=== PATIENT | female | born 1980 | race African-American/Black ===

== ENCOUNTER 2023-12-23 09:48 | Emergency (ER) | payer MEDICAID, OTHER ==
[~2023-12-23] VITALS: Ht 165.1 cm; Wt 73.0 kg
[2023-12-23 09:57] VITALS: O2SAT 98
[2023-12-23 10:35] LABS: BASOPHILS % 0.7 % (0.0-2.0); EOSINOPHILS % 9.9 % (0.0-5.0); HEMATOCRIT. 39.3 % (36.0-48.0); HEMOGLOBIN. 12.9 g/dL (12.0-16.0); LYMPHOCYTES % 28.6 % (20.0-50.0); MEAN CORPUSCULAR HEMOGLOBIN 28.9 pg (28.0-32.0); MEAN CORPUSCULAR HGB CONC 32.7 g/dL (31.0-37.0); MEAN CORPUSCULAR VOLUME 88.5 fL (81.0-99.0); MEAN PLATELET VOLUME 9.2 fl (7.4-10.4); MONOCYTES % 9.8 % (2.0-8.0); PLATELET 193 x1000/uL (130-400); RED BLOOD CELL COUNT 4.44 mill/uL (4.2-5.4); RED CELL DISTRIBUTION WIDTH 14.8 % (11.6-14.6); WHITE BLOOD COUNT 4.7 x1000/uL (4.5-11.0)
[2023-12-23 10:59] LABS: CHLORIDE 104 mEq/L (98-107); SODIUM 138 mEq/L (136-145)
[2023-12-23 11:00] LABS: CALCIUM 9.5 mg/dL (8.7-10.4); CARBON DIOXIDE 27 mEq/L (21-32)
[2023-12-23 11:01] LABS: HCG SCREEN NEGATIVE
[2023-12-23 11:05] LABS: CREATININE 0.9 mg/dL (0.6-1.0); GLUCOSE 112 mg/dL (70-105); UREA NITROGEN BLOOD 11 mg/dL (9-23)
[2023-12-23 11:07] LABS: ALANINE AMINOTRANSFERASE 8 IU/L (10-49); ALBUMIN 4.2 g/dL (3.2-4.8); ASPARTATE AMINOTRANSFERASE 19 IU/L (<34); BILIRUBIN TOTAL 0.4 mg/dL (0.1-1.0)
[2023-12-23 11:08] LABS: PROTEIN TOTAL 6.9 g/dL (6.0-8.3)
[2023-12-23 11:21] LABS: BILIRUBIN DIRECT < 0.1 mg/dL (<=3.0)
[2023-12-23 12:27] LABS: ETHANOL BLOOD < 10 mg/dL (<10); TROPONIN I HIGH SENSITIVITY < 4 ng/L (3.0-34)
[2023-12-23 14:24] VITALS: BP 137/71; PULSE 64; RESP 16; TEMP 97.1
== END 2023-12-23 14:30 | disposition short-term general hospital (02) ==
LOC: ER 10:10
DX: R42 Dizziness and giddiness (principal); H53.8 Other visual disturbances; Z98.890 Other specified postprocedural states; Z91.048 Other nonmedicinal substance allergy status
CPT/HCPCS: 80076; 80048; 80320; 84703; 83690; 85025; 84484; 36415; 71045; 70450; 99285; Z7610 ×2; G0480

== ENCOUNTER 2024-01-03 17:20 | Emergency (ER) | payer OTHER ==
[~2024-01-03] VITALS: Ht 160 cm; Wt 82.0 kg
[2024-01-03 17:21] VITALS: BP 136/87; PULSE 73; RESP 18; TEMP 98.3; O2SAT 100
[2024-01-04] MEDS ORDERED: LORAZEPAM 1MG TABLET PO ONE (00:15)
[2024-01-04 00:44] LABS: BASOPHILS % 0.8 % (0.0-2.0); EOSINOPHILS % 10.9 % (0.0-5.0); LYMPHOCYTES % 25.7 % (20.0-50.0); MEAN CORPUSCULAR HEMOGLOBIN 28.8 pg (28.0-32.0); MEAN CORPUSCULAR HGB CONC 32.6 g/dL (31.0-37.0); MEAN CORPUSCULAR VOLUME 88.3 fL (81.0-99.0); MEAN PLATELET VOLUME 9.4 fl (7.4-10.4); NEUTROPHILS % 49.6 % (40.0-76.0); PLATELET 168 x1000/uL (130-400); RED BLOOD CELL COUNT 4.52 mill/uL (4.2-5.4); RED CELL DISTRIBUTION WIDTH 14.7 % (11.6-14.6); WHITE BLOOD COUNT 4.8 x1000/uL (4.5-11.0)
[2024-01-04 00:50] LABS: CARBON DIOXIDE 25 mEq/L (21-32); CHLORIDE 106 mEq/L (98-107); SODIUM 139 mEq/L (136-145)
[2024-01-04 00:51] LABS: CALCIUM 9.6 mg/dL (8.7-10.4)
[2024-01-04 00:55] LABS: CREATININE 0.8 mg/dL (0.6-1.0)
[2024-01-04 00:56] LABS: GLUCOSE 103 mg/dL (70-105); UREA NITROGEN BLOOD 16 mg/dL (9-23)
[2024-01-04 00:58] LABS: ALANINE AMINOTRANSFERASE 7 IU/L (10-49); ALBUMIN 4.7 g/dL (3.2-4.8); ASPARTATE AMINOTRANSFERASE 14 IU/L (<34); BILIRUBIN TOTAL 0.4 mg/dL (0.1-1.0); PROTEIN TOTAL 7.2 g/dL (6.0-8.3)
[2024-01-04 01:02] LABS: HCG SCREEN NEGATIVE
[2024-01-04] MEDS ORDERED: LORAZEPAM 1MG TABLET PO NR (02:45)
== END 2024-01-04 03:07 | disposition home or self-care (01) ==
LOC: ER 17:20
DX: F41.9 Anxiety disorder, unspecified (principal)
CPT/HCPCS: 36415; 80053; 84703; 85025; 99283

== ENCOUNTER 2024-01-11 08:58 | Emergency (ER) | payer OTHER ==
[~2024-01-11] VITALS: Ht 165.1 cm; Wt 82.0 kg
[2024-01-11 09:00] VITALS: TEMP 97.7; O2SAT 97
[2024-01-11 10:32] LABS: BASOPHILS % 1.6 % (0.0-2.0); EOSINOPHILS % 4.1 % (0.0-5.0); HEMOGLOBIN. 13.4 g/dL (12.0-16.0); LYMPHOCYTES % 27.2 % (20.0-50.0); MEAN CORPUSCULAR HEMOGLOBIN 28.7 pg (28.0-32.0); MEAN CORPUSCULAR HGB CONC 32.5 g/dL (31.0-37.0); MEAN CORPUSCULAR VOLUME 88.1 fL (81.0-99.0); MEAN PLATELET VOLUME 9.2 fl (7.4-10.4); MONOCYTES % 12.6 % (2.0-8.0); NEUTROPHILS % 54.5 % (40.0-76.0); PLATELET 190 x1000/uL (130-400); RED BLOOD CELL COUNT 4.66 mill/uL (4.2-5.4); RED CELL DISTRIBUTION WIDTH 14.6 % (11.6-14.6); WHITE BLOOD COUNT 3.9 x1000/uL (4.5-11.0)
[2024-01-11 10:45] LABS: CHLORIDE 105 mEq/L (98-107); POTASSIUM 3.9 mEq/L (3.5-5.1); SODIUM 139 mEq/L (136-145)
[2024-01-11 10:46] LABS: CARBON DIOXIDE 27 mEq/L (21-32)
[2024-01-11 10:47] LABS: CALCIUM 9.8 mg/dL (8.7-10.4)
[2024-01-11 10:51] LABS: CREATININE 0.7 mg/dL (0.6-1.0); GLUCOSE 105 mg/dL (70-105); UREA NITROGEN BLOOD 11 mg/dL (9-23)
[2024-01-11 10:52] LABS: TROPONIN I HIGH SENSITIVITY 4 ng/L (3.0-34)
[2024-01-11] MEDS ORDERED: LORAZEPAM 0.5MG TABLET PO ONE (11:30)
[2024-01-11] MEDS ORDERED: FAMO-135 MT (12:35)
[2024-01-11] MEDS ORDERED: TOPUD MT (12:35)
[2024-01-11] MEDS: LORAZEPAM 0.5MG TABLET PO NR (13:04)
[2024-01-11 13:05] VITALS: BP 118/70; PULSE 80; RESP 15
== END 2024-01-11 13:05 | disposition home or self-care (01) ==
LOC: ER 08:58
DX: R07.89 Other chest pain (principal); I10 Essential (primary) hypertension; E11.9 Type 2 diabetes mellitus without complications; Z91.018 Allergy to other foods; Z86.59 Personal history of other mental and behavioral disorders
CPT/HCPCS: 36415; 71045; 80048; 83880; 84484; 85025; 93005; 99285

== ENCOUNTER 2024-01-15 11:15 | Emergency (ER) | payer OTHER ==
[~2024-01-15] VITALS: Ht 157.5 cm; Wt 83.0 kg
[~2024-01-15 11:15] MED LIST: FAMO-135 MT; TOPUD MT
[2024-01-15 11:21] VITALS: O2SAT 97
[2024-01-15 11:31] LABS: BASOPHILS % 1.2 % (0.0-2.0); EOSINOPHILS % 4.2 % (0.0-5.0); HEMATOCRIT. 40.6 % (36.0-48.0); HEMOGLOBIN. 13.2 g/dL (12.0-16.0); LYMPHOCYTES % 29.7 % (20.0-50.0); MEAN CORPUSCULAR HEMOGLOBIN 28.5 pg (28.0-32.0); MEAN CORPUSCULAR HGB CONC 32.5 g/dL (31.0-37.0); MEAN CORPUSCULAR VOLUME 87.7 fL (81.0-99.0); MONOCYTES % 10.6 % (2.0-8.0); NEUTROPHILS % 54.3 % (40.0-76.0); PLATELET 203 x1000/uL (130-400); RED BLOOD CELL COUNT 4.62 mill/uL (4.2-5.4); RED CELL DISTRIBUTION WIDTH 14.3 % (11.6-14.6); WHITE BLOOD COUNT 3.9 x1000/uL (4.5-11.0)
[2024-01-15 11:44] VITALS: TEMP 98.8
[2024-01-15 11:49] LABS: CHLORIDE 105 mEq/L (98-107); POTASSIUM 3.7 mEq/L (3.5-5.1); SODIUM 140 mEq/L (136-145)
[2024-01-15 11:50] LABS: CALCIUM 9.2 mg/dL (8.7-10.4); CARBON DIOXIDE 27 mEq/L (21-32)
[2024-01-15 11:55] LABS: CREATININE 0.8 mg/dL (0.6-1.0); GLUCOSE 123 mg/dL (70-105); UREA NITROGEN BLOOD 10 mg/dL (9-23)
[2024-01-15 11:58] LABS: TROPONIN I HIGH SENSITIVITY 6 ng/L (3.0-34)
[2024-01-15] MEDS ORDERED: MECLIZINE 25MG TABLET PO ONE (12:15)
[2024-01-15] MEDS: SODIUM CHLORIDE 0.9% 1,000 ML IV ONE (12:25)
[2024-01-15] MEDS: MECLIZINE 12.5MG TABLET PO NR (12:33)
[2024-01-15 15:24] VITALS: BP 145/95; PULSE 74; RESP 16
== END 2024-01-15 15:45 | disposition short-term general hospital (02) ==
LOC: ER 11:15 → CANBEDREQ 13:19 → ER 15:45
DX: R42 Dizziness and giddiness (principal); I16.0 Hypertensive urgency; F41.9 Anxiety disorder, unspecified; E11.9 Type 2 diabetes mellitus without complications; Z88.8 Allergy status to other drugs, medicaments and biological substances
CPT/HCPCS: 99285; 70450; 71045; 80048; 83880; 85025; 84484; 36415; 93005; J8597; J7030